=== PATIENT | female | born 1985 | race Caucasian/White ===

== ENCOUNTER 2018-08-22 07:38 | Inpatient (IN) | payer OTHER ==
--- NOTE | 2018-08-15 10:17 | HP ---
Admitting History and Physical - Primary Care Physician PCP: Prashanth Wilde - Admission Chief Complaint: BRCA mutation and H/O right breast cancer History of Present Illness: 33 year old nulliparous premenapausal female BRCA 1 positive with H/O right breast cancer S/P right breast wide excision for 1.3 cm invasive ductal carcinoma 9 neg nodes, Triple negative. . She did go back for re excision of positive inferior margin. 12/2017. She underwent chemotherapy and was on Taxol. History Source: Patient Limitations to Obtaining History: No Limitations - Past Surgical History Additional Past Surgical History: Right breast wide excision 1.3 cm invasive ductal ca and 9 neg nodes/ sentenel node bx 12/2017 with reexcision for positive inferior margin/taxol chemo therapy left breast core bx benign 2017 - Smoking History Smoking history: Never smoked Have you smoked in the past 12 months: No - Alcohol/Substance Use Hx Alcohol Use: Yes (10 per week) Home Medications - Allergies Allergies/Adverse Reactions: Allergies Allergy/AdvReac Type Severity Reaction Status Date / Time No Known Allergies Allergy Verified 08/15/18 10:19 Family Disease History - Family Disease History Family Disease History: CA: Father (prostate ca 52), Mother (bilateral breast ca BRCA + 39/42) Other Family History: pat aunt breast ca 60 and one with pancreatic ca 42 Physical Examination Constitutional: Yes: Well Nourished Breast(s): Yes: Other (B cup breasts symetrical incision above imfrmamamry fold lower inner right breast, well healed and no recurrence noted or masses in either breast , no adenopathy bilaterally) Problem List - Problems (1) BRCA gene mutation positive in female Code(s): Z15.01 - GENETIC SUSCEPTIBILITY TO MALIGNANT NEOPLASM OF BREAST; Z15.02 - GENETIC SUSCEPTIBILITY TO MALIGNANT NEOPLASM OF OVARY; Z15.09 - GENETIC SUSCEPTIBILITY TO OTHER MALIGNANT NEOPLASM (2) History of cancer of right breast Code(s): Z85.3 - PERSONAL HISTORY OF MALIGNANT NEOPLASM OF BREAST Assessment/Plan Bilateral total mastectomies with reconstruction
[2018-08-20 13:37] VITALS: BMI 21.2
[2018-08-22] MEDS ORDERED: PROPOFOL 20 ML ONE ×2 (08:17→12:06)
[2018-08-22] MEDS ORDERED: ROCURONIUM BROMIDE 50 MG/5 ML VIAL ONE ×2 (08:19→12:03)
[2018-08-22] MEDS ORDERED: ceFAZolin SODIUM 1 GM VIAL ONE ×3 (09:14→14:49)
[2018-08-22] MEDS ORDERED: LIDOCAINE 1%/EPI 1:100000 (20 ML MULTI DOSE VIAL) ONE (09:14)
[2018-08-22] MEDS ORDERED: GENTAMICIN SO4 80 MG/2 ML VIAL ONE (09:14)
[2018-08-22] MEDS ORDERED: MIDAZOLAM HCL 2 MG/2 ML SINGLE DOSE VIAL ONE (09:25)
[2018-08-22] MEDS ORDERED: BUPIVACAINE HCL/PF 2.5 MG/ML - 30 ML VIAL IJ ONE (09:25)
[2018-08-22] MEDS ORDERED: BUPIVACAINE LIPOSOME/PF (EXPAREL) 266 MG/20 ML VIAL ONE (09:25)
[2018-08-22] MEDS ORDERED: HYDROmorphone HCL/PF 1 MG/ML AMP ONE ×2 (10:33→12:32)
[2018-08-22] MEDS ORDERED: DESFLURANE GAS 240 ML BOTTLE IH ONE (10:41)
[2018-08-22] MEDS ORDERED: ONDANSETRON 4 MG/2 ML VIAL ONE (12:06)
[2018-08-22] MEDS ORDERED: DEXAMETHASONE SOD PHOSPHATE 4 MG/1 ML VIAL ONE (12:06)
[2018-08-22] MEDS ORDERED: ACETAMINOPHEN 325 MG TABLET (FP) PO PRN (12:47)
[2018-08-22] MEDS ORDERED: ONDANSETRON 4 MG/2 ML VIAL IVPUSH PRN ×2 (12:47→14:14)
[2018-08-22] MEDS ORDERED: ZOLPIDEM TARTRATE 5 MG TABLET PO PRN (12:47)
[2018-08-22] MEDS ORDERED: LORazepam 0.5 MG TABLET PO PRN (12:48)
--- NOTE | 2018-08-22 14:11 | SURG ---
Surgery Sales Associate Key Holder Note Sales Associate Key Holder: Kee Alvarado PA-C Date of Service: 08/22/18 Diagnosis: Breast cancer, genetic predisposition for breast cancer Procedure: Bilateral breast reconstruction with Alloderm and implant I was present for the entirety of the operative procedure. For further detail, please refer to operative report.
[2018-08-22] MEDS ORDERED: LACTATED RINGERS SOLUTION 1,000 ML IV SCH (14:15)
[2018-08-22] MEDS ORDERED: oxyCODONE HCL 5 MG TABLET PO PRN (14:17)
[2018-08-22] MEDS ORDERED: diazePAM 2 MG TABLET ONE (14:50)
[2018-08-22] MEDS: diazePAM 2 MG TABLET PO SCH (14:50)
[2018-08-22] MEDS: traMADol HCL 50 MG TABLET PO SCH ×2 (16:16→21:37)
[2018-08-22] MEDS: ACETAMINOPHEN 325 MG TABLET (FP) PO SCH ×2 (16:17→21:37)
[2018-08-22] MEDS: DEXTROSE 5%-0.45% SALINE 1,000 ML IV SCH (16:25)
[2018-08-22] MEDS: CEFAZOLIN 1 GM/D5W 1 GRAM/50 ML BAG IVPB SCH ×2 (16:26→20:15)
[2018-08-22] MEDS: oxyCODONE HCL 5 MG TABLET PO PRN (19:53)
--- NOTE | 2018-08-23 00:11 | OP ---
DATE OF OPERATION: 08/22/2018 PREOPERATIVE DIAGNOSIS: Genetic susceptibility for breast cancer, BRCA1 positive with a history of right breast cancer lower inner quadrant. POSTOPERATIVE DIAGNOSIS: Genetic susceptibility for breast cancer, BRCA1 positive with a history of right breast cancer lower inner quadrant. PROCEDURE: Bilateral total nipple sparing mastectomies through an inframammary approach with bilateral direct implant reconstruction with AlloDerm. PRIMARY SURGEON: Prashanth Wilde M.D. RN CLINICAL QUALITY: Rachel Baca Primary surgeon for the bilateral direct implant reconstruction with AlloDerm is Prashanth Jackson M.D., with his histology assistant Rachel Herrera ANESTHESIA: General endotracheal anesthesia. COMPLICATIONS: There were no complications. Briefly, the patient is a 32-year-old nulliparous premenopausal white female of Ashkenazi [place] heritage as well as [place] and [place] Citizen heritage. She has a strong family history with a mother who had breast cancer at age 39 and age 42 and tested BRCA1 positive. Her paternal aunt had breast cancer at age 60. Another paternal aunt had pancreatic cancer at age 42 and her father had prostate cancer at age 52. The patient was diagnosed with a right breast lower inner quadrant triple negative poorly differentiated breast cancer in November of 2017 and underwent a partial mastectomy and sentinel lymph node biopsy. Lymph nodes were negative, and she had a 1.3-cm triple negative cancer. She underwent the reexcision for positive margin and then underwent chemotherapy. The patient is doing well and now has decided to undergo bilateral mastectomy. She was seen preoperatively and understood our nipple sparing mastectomy technique. She understood all risks, complications to the procedure including risk of skin flap necrosis, hematoma, infection, and nipple loss. She understood that we do retroareolar biopsies at the time of surgery; if these show cancer, we will remove the nipples. The patient is seen by our plastic surgeon preoperatively and understood the direct implant reconstruction technique with the use of AlloDerm. She was brought in for the procedure on August 22, 2018, and in the holding area site verification was made and informed consent as obtained. She was marked preoperatively by the plastic surgeon. She was then brought into the operating room and laid on the OR table in a supine position. Venodynes were placed on the lower extremities prior to induction. She received a gram of Ancef prior to incision. She underwent general endotracheal anesthesia. Both breasts were sterilely prepped and draped in usual fashion. Bilateral inframammary incisions were marked and the inframammary folds bilaterally, about 9 cm in length. The left breast skin-sparing mastectomy was performed. Incision was made in the inframammary incision, and the skin edges everted, and the breast was retracted inferiorly using Dowling clamps. The skin flap was raised superiorly to the clavicle using the PEEK radiofrequency device and medial to the level of the sternum and lateral to the level of the latissimus, and inferiorly to the level of the inframammary fold. The breast was taken out off the pectoralis major muscle using electrocautery from inferomedial to superolateral complete removed intact. It was oriented with a long lateral, short superior suture, and weighed to allow for appropriate cosmetic result. A retroareolar biopsy was taken underneath the left nipple areolar complex and frozen section came back negative, so the left nipple was spared. Hemostasis was achieved, and the wound was copiously irrigated with warm, sterile saline. At this point the right mastectomy was performed, again in the same fashion through an inframammary incision 9 cm in length, symmetrical to the left incision. Skin flaps are everted, and the breast is retracted inferiorly using Rick clamps. The skin flap was raised superiorly to the level of the clavicle, medially to the level of the sternum, laterally to the level of the latissimus, and inferiorly below the level of the inframammary fold. The breast was taken out off the pectoralis major muscle using electrocautery from inferomedial to superolateral completely removed intact. It was oriented with a long lateral, short superior suture, and there was a suture placed on the previous wide excision cavity site as well. The specimen was weighed to allow for appropriate cosmetic result and placed in formalin and sent to pathology as specimen. Hemostasis was achieved, separate margin was taken, just on the anterior and posterior aspect of the previous biopsy cavity, and these were sent separately to pathology as anterior, posterior margins. Again, hemostasis was achieved. A retroareolar biopsy was taken underneath the right nipple areolar complex and sent for frozen section, came back negative, so the right nipple was spared as well. At this point, Dr. Jackson became the primary surgeon to perform bilateral direct implant reconstruction. AlloDerm was sutured into the inframammary fold as well as the inferior aspect of the pectoralis major muscle, to allow for the direct implant reconstruction. This was done bilaterally. Two Antonio drains were placed around each implant, brought out through separate stab incisions on the lateral skin flaps and secured in place using 3-0 nylon suture. Wounds will all be closed by plastic surgery, and Steri-Strips will be placed over the wounds. She was placed in a surgical bra postoperatively and extubated at the end of the case. She tolerated the procedure well without difficulty. Estimated blood loss was about 125 mL. She was hemodynamically stable throughout. She will be recovered in the post anesthesia care unit and admitted postoperatively for pain management and wound management. It should be noted that she did have a preoperative nerve block performed by anesthesia for postoperative pain control. We did use the SPY skin perfusion device during the case, and she had excellent blood flow in both skin flaps after the mastectomies, and after the reconstruction. [place] [id number]
[2018-08-23] MEDS: diazePAM 2 MG TABLET PO SCH ×3 (02:02→15:04)
[2018-08-23] MEDS: oxyCODONE HCL 5 MG TABLET PO PRN (02:02)
[2018-08-23] MEDS: CEFAZOLIN 1 GM/D5W 1 GRAM/50 ML BAG IVPB SCH ×3 (02:03→15:02)
[2018-08-23] MEDS: traMADol HCL 50 MG TABLET PO SCH ×3 (03:00→15:04)
[2018-08-23] MEDS: ACETAMINOPHEN 325 MG TABLET (FP) PO SCH ×3 (03:00→15:03)
[2018-08-23 07:59] LABS: HEMATOCRIT 30.5 % (32.4-45.2); HEMOGLOBIN 10.2 GM/dl (10.7-15.3); MCHC 33.4 g/dl (32.0-36.0); MEAN CELL VOLUME 95.8 fl (80-96); MEAN PLT VOLUME 7.6 fl (7.5-11.1); PLATELET COUNT 204 K/MM3 (134-434); RBC 3.18 M/mm3 (3.60-5.2); RDW 11.7 % (11.6-15.6); WHITE BLOOD COUNT 5.9 K/mm3 (4.0-10.8)
--- NOTE | 2018-08-23 08:54 | PN ---
Progress Note, Physician Chief Complaint: s/p bilateral mastectomy, reconstruction under general anesthesia History of Present Illness: post op day one - Current Medication List Current Medications: Active Medications Acetaminophen (Tylenol -) 650 mg PO Q4H PRN PRN Reason: FEVER Acetaminophen (Tylenol -) 650 mg PO Q6H [facility] Last Admin: 08/23/18 03:00 Dose: 650 mg Diazepam (Valium -) 2 mg PO Q8H [facility] Last Admin: 08/23/18 06:12 Dose: Not Given Cefazolin Sodium (Ancef 1 Gm Premixed Ivpb -) 1 gram in 50 mls @ 100 mls/hr IVPB Q6H-IV [facility] Stop: 08/29/18 14:59 Last Admin: 08/23/18 08:44 Dose: 100 mls/hr Dextrose/Sodium Chloride (D5-1/2ns -) 1,000 mls @ 100 mls/hr IV ASDIR [facility] Last Admin: 08/22/18 16:25 Dose: Not Given Lactated Ringer's (Lactated Ringers Solution) 1,000 mls @ 75 mls/hr IV ASDIR [facility] Last Admin: 08/22/18 16:25 Dose: Not Given Lorazepam (Ativan -) 1 mg PO HS PRN PRN Reason: INSOMNIA Ondansetron HCl (Zofran Injection) 4 mg IVPUSH Q6H PRN PRN Reason: NAUSEA AND/OR VOMITING Last Admin: 08/22/18 22:39 Dose: 4 mg Oxycodone HCl (Roxicodone -) 5 mg PO Q3H PRN PRN Reason: PAIN LEVEL 1-5 Oxycodone HCl (Roxicodone -) 10 mg PO Q4H PRN PRN Reason: PAIN LEVEL 6-10 Last Admin: 08/23/18 02:02 Dose: 10 mg Tramadol HCl (Ultram -) 50 mg PO Q6H [facility] Last Admin: 08/23/18 03:00 Dose: 50 mg Zolpidem Tartrate (Ambien -) 5 mg PO HS PRN PRN Reason: Insomnia - Objective Vital Signs: Vital Signs Temperature 98.6 F 08/23/18 06:00 Pulse Rate 62 08/23/18 06:00 Respiratory Rate 18 08/23/18 08:14 Blood Pressure 95/54 L 08/23/18 06:00 O2 Sat by Pulse Oximetry (%) 100 08/23/18 08:14 Constitutional: Yes: Well Nourished Cardiovascular: Yes: WNL Respiratory: Yes: WNL Gastrointestinal: Yes: WNL Labs: CBC, BMP 08/23/18 07:45 Assessment/Plan No acute complications related to anesthesia, pain controlled, no further interventions from the dept of anesthesiology at this time
--- NOTE | 2018-08-23 08:58 | PN ---
Progress Note, Physician Chief Complaint: BRCA positive and h/O right breast cancer /wide excision now S/P bilateral total mastectomies implant and alloderm reconstruction. POD#! History of Present Illness: patient was dizzy last night and nausea but better this morning. Pain managed with oxycodone valium prn, not OOb this am , eating small amounts - Current Medication List Current Medications: Active Medications Acetaminophen (Tylenol -) 650 mg PO Q4H PRN PRN Reason: FEVER Acetaminophen (Tylenol -) 650 mg PO Q6H [facility] Last Admin: 08/23/18 03:00 Dose: 650 mg Diazepam (Valium -) 2 mg PO Q8H [facility] Last Admin: 08/23/18 06:12 Dose: Not Given Cefazolin Sodium (Ancef 1 Gm Premixed Ivpb -) 1 gram in 50 mls @ 100 mls/hr IVPB Q6H-IV [facility] Stop: 08/29/18 14:59 Last Admin: 08/23/18 08:44 Dose: 100 mls/hr Dextrose/Sodium Chloride (D5-1/2ns -) 1,000 mls @ 100 mls/hr IV ASDIR [facility] Last Admin: 08/22/18 16:25 Dose: Not Given Lactated Ringer's (Lactated Ringers Solution) 1,000 mls @ 75 mls/hr IV ASDIR [facility] Last Admin: 08/22/18 16:25 Dose: Not Given Lorazepam (Ativan -) 1 mg PO HS PRN PRN Reason: INSOMNIA Ondansetron HCl (Zofran Injection) 4 mg IVPUSH Q6H PRN PRN Reason: NAUSEA AND/OR VOMITING Last Admin: 08/22/18 22:39 Dose: 4 mg Oxycodone HCl (Roxicodone -) 5 mg PO Q3H PRN PRN Reason: PAIN LEVEL 1-5 Oxycodone HCl (Roxicodone -) 10 mg PO Q4H PRN PRN Reason: PAIN LEVEL 6-10 Last Admin: 08/23/18 02:02 Dose: 10 mg Tramadol HCl (Ultram -) 50 mg PO Q6H [facility] Last Admin: 08/23/18 03:00 Dose: 50 mg Zolpidem Tartrate (Ambien -) 5 mg PO HS PRN PRN Reason: Insomnia - Objective Vital Signs: Vital Signs Temperature 98.6 F 08/23/18 06:00 Pulse Rate 62 08/23/18 06:00 Respiratory Rate 18 08/23/18 08:14 Blood Pressure 95/54 L 08/23/18 06:00 O2 Sat by Pulse Oximetry (%) 100 08/23/18 08:14 Constitutional: Yes: No Distress Breast(s): Yes: Other (Bilateral flaps viable incision intact with steristrips moderate echymosis left breast right none MICA drains functiong well) Labs: CBC, BMP 08/23/18 07:45 Problem List - Problems (1) BRCA gene mutation positive in female Code(s): Z15.01 - GENETIC SUSCEPTIBILITY TO MALIGNANT NEOPLASM OF BREAST; Z15.02 - GENETIC SUSCEPTIBILITY TO MALIGNANT NEOPLASM OF OVARY; Z15.09 - GENETIC SUSCEPTIBILITY TO OTHER MALIGNANT NEOPLASM (2) History of cancer of right breast Code(s): Z85.3 - PERSONAL HISTORY OF MALIGNANT NEOPLASM OF BREAST Assessment/Plan OOB with assistance spirometry SCD while in bed IV antibiotics valium /oxyconde /tylenol prn pain
[2018-08-23 10:47] VITALS: BP 100/54; PULSE 68; TEMP 98.7
[2018-08-23] MEDS: DEXTROSE 5%-0.45% SALINE 1,000 ML IV SCH (13:22)
--- NOTE | 2018-08-24 11:12 | OP ---
DATE OF OPERATION: 08/22/2018 PREOPERATIVE DIAGNOSES: 1. Personal history of breast carcinoma. 2. High-risk breast cancer, BRCA positive. 3. Bilateral acquired chest wall deformity status post bilateral mastectomy (611.89). 4. Personal history of genetic carcinoma. POSTOPERATIVE DIAGNOSES: 1. Bilateral acquired chest wall deformity status post bilateral mastectomy (611.89). 2. Personal history of genetic carcinoma. PROCEDURE: 1. Right immediate breast reconstruction utilizing immediate insertion of silicone breast implant and AlloDerm reconstruction. 2. Left immediate breast reconstruction utilizing immediate insertion of silicone breast implant and AlloDerm reconstruction. 3. Intravenous injection of indocyanine green dye and intraoperative diagnostic evaluation of non-coronary intraoperative fluorescein vascular angiography x 2. SURGEON: Dr. Ralph Jackson CAPSULE MAKER: Kee Alvarado PA-C ANESTHESIA: GENERAL ANESTHESIOLOGIST: OPERATIVE PROCEDURE IN DETAIL: The patient was taken to the operating room. After induction of general anesthesia in the supine position, both arms were extended and padded. Venodyne boots were placed. The entire chest wall was painted with ChloraPrep solution over its entire extent, and sterile drapes were placed in the usual fashion. The markings, which had been made in the standing position preoperatively, were reoutlined with the patient's knowledge. Time-out procedure was performed. Attention was turned by Dr. Wilde to the mastectomies. Bilateral inframammary incisions were made and Dr. Wilde performed mastectomies. This will be dictated under separate cover. Upon completion of the mastectomies, the wounds were copiously irrigated and attention was turned to the right breast. A subpectoral dissection was begun on the right breast, superiorly from the second rib, medially to the sternal fibers, and down to the inframammary fold, elevating the pectoralis major muscle from its insertion. At this point, an 8.0 x 16.0 sheet of AlloDerm contour medium perforated acellular dermal matrix bilaterally was brought into the field and sutured superiorly along the pectoralis major muscle after rehydration. This was carried along the lateral mammary fold and down the side of the breast reconstruction. At this point, a Sientra smooth round high-profile, style 107, of 440 mL volume implant was chosen. The left breast tissue removed was 283 gm, and the right breast approximately 235 gm. This implant was placed and then sutured with 3-0 Vicryl suture continued along the inframammary fold, completely covering the implant itself. The exact same procedure was carried out symmetrically on the opposite breast, also placing a Sientra smooth round high-profile, style 107, of 440 mL volume implant in the same subpectoral pocket. Good symmetry was seen in the sitting position. After the implants were in place, the patient was injected with 10 mL of Isocyanide green dye and the Spy imaging system was brought into the field. The skin flowed to the right and left breasts and the nipple areolar complex, and the entire skin flaps were evaluated and seen to be viable with good blood flow. Four Antonio drains were placed, two on each side, and brought out through separate stab wounds laterally. Both wounds were closed symmetrically using 3-0 PDS suture on the deep tissue, 3-0 in a deep dermal fashion, and 4-0 in a subcuticular fashion. Both wounds were dressed sterilely with Mastisol and Steri-Strips with a surgical bra and a compression strap. The patient tolerated the procedure well. She was awakened, extubated and transferred to the recovery room in satisfactory condition. The delinquent tax collector assistant was present during the entire portion of the operation and closure. OUMAR JACKSON M.D. [id number]
--- NOTE | 2018-08-27 15:05 | PATH ---
Surgical Pathology Report Patient Name: MAKSIM SELF Med. Rec. #: [id number] /Age/Gender: 1985 (Age: 33) / F Account: [id number] Location: [facility] MED-SURG Taken: 08/22/2018 Received: 08/22/2018 Reported: 08/27/2018 Physicians: Prashanth Wilde M.D. Specimen(s) Received A: LEFT BREAST RETROAREOLAR (FS) B: RIGHT BREAST RETROAREOLAR (FS) C: RIGHT BREAST MASTECTOMY D: ANTERIOR MARGIN RIGHT BREAST E: POSTERIOR MARGIN RIGHT BREAST F: LEFT BREAST MASTECTOMY Clinical History BRCA 1+, bilateral prophylactic History of right lower inner quadrant breast cancer status post partial mastectomy Intraoperative Consult Diagnosis A. Left breast retroareolar biopsy, frozen section: Negative for malignancy. B. Right breast retroareolar biopsy, frozen section: Negative for malignancy. Dr. Gross, 08/22/18 Final Diagnosis A. BREAST, LEFT, RETROAREOLAR, BIOPSY(FS): BENIGN BREAST PARENCHYMA. B. BREAST, RIGHT, RETROAREOLAR, BIOPSY(FS): BENIGN BREAST PARENCHYMA. C. BREAST, RIGHT, MASTECTOMY: BENIGN BREAST PARENCHYMA WITH DENSE FIBROSIS AND FOCAL GIANT CELL REACTION CONSISTENT WITH CHANGES OF PRIOR PROCEDURE IN A BACKGROUND OF FIBROCYSTIC CHANGES INCLUDING STROMAL FIBROSIS AND MICROCYSTS. D. BREAST, RIGHT, ANTERIOR MARGIN, EXCISION: BENIGN FIBROADIPOSE TISSUE WITH DENSE FIBROSIS AND FOCAL GIANT CELL REACTION CONSISTENT WITH CHANGES PRIOR PROCEDURE. SCANT UNREMARKABLE SKELETAL MUSCLE IDENTIFIED. E. BREAST, RIGHT, POSTERIOR MARGIN, EXCISION: BENIGN FIBROADIPOSE TISSUE WITH FOCAL GIANT CELL REACTION, HYALINE FIBROSIS, CONSISTENT WITH CHANGES PRIOR TREATMENT AND PROCEDURE. SCANT UNREMARKABLE SKELETAL MUSCLE IDENTIFIED. F. BREAST, LEFT, MASTECTOMY: BENIGN BREAST PARENCHYMA WITH FIBROCYSTIC CHANGES INCLUDING STROMAL FIBROSIS AND MICROCYSTS. Electronically Signed Clara Dunn M.D. Gross Description A. Received fresh labeled "left breast retroareolar biopsy," is a 1.5 x 1.3 x 0.3 cm portion of red and pink soft tissue. A frozen section is performed on the specimen. The frozen section residue is entirely submitted in one cassette. B. Received fresh labeled "right breast retroareolar biopsy" it a 0.8 x 0.4 x 0.2 cm portion of red and pink soft tissue. A frozen section is performed on the specimen. The frozen section residue is entirely submitted in one cassette. C. Received in formalin, labeled "right breast mastectomy," is a 269 gram, 12.5 x 12.5 x 3.2 cm. right mastectomy specimen with a short suture marking the superior aspect and a long suture marking the lateral aspect of the specimen, per the surgeon. There is no skin or nipple present. The deep margin is inked black and the anterior soft tissue margin is inked blue. The specimen is serially sectioned from lateral to medial. Sectioning reveals a focus of firm fibrous tissue, consistent with a well healed previous biopsy cavity in the lower inner quadrant (LIQ). The remaining breast parenchyma displays abundant dense, white, focally firm fibrous tissue. Barrel Inspector Tight sections are submitted in 11 cassettes as follows: 1-2-upper outer quadrant; 3-4-lower outer quadrant; 5-6-upper inner quadrant; 7-8-LIQ previous biopsy cavity; 9-uninvolved LIQ; 10-anterior soft tissue margin; 11-deep margin. D. Received in formalin labeled "anterior margin right breast," is a 2.0 x 1.3 x 0.4 cm irregular, unoriented portion of fibroadipose tissue. The specimen is serially sectioned and entirely submitted in 2 cassettes. E. Received in formalin labeled "posterior margin right breast," is a 1.4 x 1.0 x 0.3 cm irregular, unoriented portion of fibroadipose tissue. The specimen is serially sectioned and entirely submitted in 2 cassettes. F. Received in formalin, labeled "left breast mastectomy," is a 303 gram, 14.0 x 11.5 x 2.7 cm. left mastectomy specimen with a short suture marking the superior aspect and a long suture marking the lateral aspect of the specimen, per the surgeon. There is no skin or nipple present. The deep margin is inked black and the anterior soft tissue margin is inked blue. The specimen is serially sectioned from medial to lateral. Sectioning reveals abundant dense, white fibrous tissue. Barrel Inspector Tight sections are submitted in 10 cassettes as follows: 1-2-upper outer quadrant; 3-4-lower outer quadrant; 5-6-upper inner quadrant; 7-8-lower inner quadrant; 9-anterior soft tissue margin; 10-deep margin. Time to formalin fixation: 47 minutes Total formalin fixation time: Approximately 29 hours. DL08/23/2018 saudi08/23/2018
== END 2018-08-23 15:55 | disposition home or self-care (01) | DRG 585 ==
LOC: FM/S 07:38
PROVIDERS: ADMIT Surgery Surgical Oncology; ATTEND Surgery Surgical Oncology
PROC: 4A1GXSH Monitoring of Skin and Breast Vascular Perfusion using Indocyanine Green Dye, External Approach (ICD-10-PCS; 2018-08-22)
PROC: 0HTV0ZZ Resection of Bilateral Breast, Open Approach (ICD-10-PCS; principal; 2018-08-22 10:47)
PROC: 0HRV0JZ Replacement of Bilateral Breast with Synthetic Substitute, Open Approach (ICD-10-PCS; 2018-08-22 10:47)
DX: Z40.01 Encounter for prophylactic removal of breast (principal); M95.4 Acquired deformity of chest and rib; Z15.01 Genetic susceptibility to malignant neoplasm of breast; Z15.02 Genetic susceptibility to malignant neoplasm of ovary; Z15.09 Genetic susceptibility to other malignant neoplasm; Z85.3 Personal history of malignant neoplasm of breast
CPT/HCPCS: 36415; 85027; 88305-TC; 88307-TC; 88331-TC; 94760